=== PATIENT | male | born 1965 | race Caucasian/White ===

== ENCOUNTER 2021-03-02 07:54 | Emergency (ER) | payer BC ==
[2021-03-02 09:22] LABS: HEMOGLOBIN 14.3 gm/dl (14.0-17.5); RED BLOOD COUNT 4.72 M/UL (4.20-5.50); WHITE BLOOD COUNT 7.1 K/UL (4.5-11.0)
[2021-03-02 09:50] LABS: BUN/CREATININE RATIO 27 (0-10)
[2021-03-02 19:47] LABS: RED BLOOD COUNT 4.49 M/UL (4.20-5.50); WHITE BLOOD COUNT 6.8 K/UL (4.5-11.0)
== END 2021-03-03 00:45 | disposition short-term general hospital (02) ==
LOC: ER1 07:54
PROVIDERS: Emergency Medicine
DX: K92.2 Gastrointestinal hemorrhage, unspecified (principal); Z20.822 Contact with and (suspected) exposure to COVID-19
CPT/HCPCS: 80053; 82270; 82550; 82553; 83036; 83874; 84484; 85025; 85610; 85730; 86850; 86900; 86901; 93005; 96374; 96376; 99284; C9113; U0002